=== PATIENT | female | born 1975 | race Caucasian/White ===

== ENCOUNTER 2016-09-19 16:36 | Emergency (ER) | payer OTHER ==
[~2016-09-19 16:36] MED LIST: BACTRIM DS TABL1 TA1 PO; BACTROBAN22 GM; BACTROBAN22 GM TOP; DICLOFENAC PO; EFFEXOR50 MG PO; KEFLEX500 MG PO; LORTAB 7.51 TAB 7.5/ PO; NAPROSYN500 MG PO; NO MEDICATIONS; ROBAXIN PO; TOPAMAX50 MG PO; VIBRAMYCIN100 M1 PO
[2016-09-19] MEDS ORDERED: TOPAMAX50 MG (16:39)
[2016-09-19] MEDS ORDERED: WELLBUTRIN XL150 M2 (16:39)
[2016-09-19] MEDS ORDERED: VITAMIN D 22000 UNIT (16:39)
[2016-09-19] MEDS ORDERED: B-COMPLEX 1000.4 MG (16:39)
== END 2016-09-19 17:26 | disposition home or self-care (01) ==
LOC: SED 16:36
DX: S01.81XA Laceration without foreign body of other part of head, initial encounter (principal); G43.909 Migraine, unspecified, not intractable, without status migrainosus; F41.9 Anxiety disorder, unspecified; W20.8XXA Other cause of strike by thrown, projected or falling object, initial encounter; Y92.009 Unspecified place in unspecified non-institutional (private) residence as the place of occurrence of the external cause; Z88.8 Allergy status to other drugs, medicaments and biological substances
CPT/HCPCS: 12011; 99283